=== PATIENT | female | born 1995 | race Hispanic/Latino ===

== ENCOUNTER 2018-04-22 04:07 | Emergency (ER) | payer SELFPAY ==
[~2018-04-22] VITALS: Ht 160 cm; Wt 48.1 kg
[2018-04-22] MEDS ORDERED: IBUPROFEN 600 MG TAB PO STA (04:38)
== END 2018-04-22 06:20 | disposition home or self-care (01) ==
LOC: EDBD 04:07 → FSED 04:07
DX: R07.89 Other chest pain (principal); R06.00 Dyspnea, unspecified
CPT/HCPCS: 71260; 80053; 81025; 99284